=== PATIENT | female | born 1960 | race Hispanic/Latino ===

== ENCOUNTER 2022-09-09 10:34 | Inpatient (IN) | payer BC, OTHER ==
[~2022-09-09] VITALS: Ht 157.5 cm; Wt 88.5 kg
[2022-09-09] MEDS ORDERED: 0.9%NACL 1000ML 1,000 ML IV ONE (10:55)
[2022-09-09 10:59] LABS: BASOPHILS % (AUTO) 0.3 % (0.0-5.0); EOSINOPHILS % (AUTO) 0.6 % (0.0-8.0); HEMATOCRIT 46.4 % (36-48); LYMPHOCYTES % (AUTO) 13.6 % (21.0-51.0); MEAN CORPUSCULAR HEMOGLOBIN 28.8 pg (27.0-33.0); MEAN CORPUSCULAR HGB CONC 33.4 g/dL (32.0-36.0); MEAN CORPUSCULAR VOLUME 86.2 fL (79-99); MONOCYTES % (AUTO) 3.7 % (3.0-13.0); NEUTROPHILS % (AUTO) 81.5 % (40.0-77.0); PLATELET COUNT (AUTO) 297 K/uL (130-400); RED BLOOD CELL COUNT(AUTO) 5.38 MIL/uL (4.00-5.50); RED CELL DISTRIBUTION WIDTH 12.8 % (11.0-15.5); WHITE BLOOD COUNT (AUTO) 14.5 K/uL (4.8-10.8)
[2022-09-09] MEDS ORDERED: 0.9%NACL 1000ML 1,000 ML IV SCH (11:00)
[2022-09-09] MEDS ORDERED: ONDANSETRON 4MG INJ IV ONE (11:00)
[2022-09-09] MEDS ORDERED: HYDROMORPHONE 1 MG INJ IVP ONE ×2 (11:00→14:00)
[2022-09-09 11:17] LABS: CREATININE 0.9 mg/dL (0.5-1.5); POTASSIUM 4.2 mmol/L (3.5-5.1)
[2022-09-09 11:27] LABS: ALBUMIN 4.4 g/dL (3.5-5.0); TOTAL PROTEIN, SERUM 8.2 g/dL (6.0-8.3)
[2022-09-09] MEDS ORDERED: ZOSYN 3.375GM +NS 50ML IV SCH (12:30)
[2022-09-09 12:47] LABS: APPEARANCE,URINE CLOUDY (CLEAR); BILIRUBIN,URINE NEGATIVE (NEGATIVE); COLOR,URINE YELLOW (YELLOW); GLUCOSE, URINE (UA) NEGATIVE (NEGATIVE); KETONES,URINE 10 mg/dL (NEGATIVE); LEUKOCYTE ESTERASE ,URINE NEGATIVE Leu/uL (NEGATIVE); NITRATE,URINE NEGATIVE (NEGATIVE); OCCULT BLOOD,URINE NEGATIVE (NEGATIVE); PH,URINE 5.5 (5.0-8.0); PROTEIN,URINE 50 mg/dL (NEGATIVE); UROBILINOGEN,URINE 0.2 mg/dL (0.2-1.0)
[2022-09-09 12:52] LABS: MUCUS,URINE Moderate LPF (None Seen); SQUAMOUS EPITHELIAL CELL,UR RARE /HPF (0-2)
[2022-09-09] MEDS ORDERED: IOHEXOL 350 MG/ML 100ML INFUS..BTL IV ONE (13:24)
[2022-09-09] MEDS ORDERED: MORPHINE 2 MG SYG IVP PRN (16:00)
[2022-09-09 17:08] LABS: HEMOGLOBIN A1C 6.3 % (4.0-6.0)
[2022-09-09] MEDS ORDERED: METF-444 PO (17:10)
[2022-09-09] MEDS ORDERED: MONT-39 PO (17:11)
[2022-09-09] MEDS ORDERED: ATOR20TA65 PO (17:12)
[2022-09-09] MEDS ORDERED: LOSA1TAB54 PO (17:13)
[2022-09-09 17:22] LABS: CRP QUANTITATIVE 2.5 mg/L (0.00-9.0); THYROID STIMULATING HORMONE 2.51 uIU/mL (0.36-3.74)
[2022-09-09] MEDS: 0.9%NACL 1000ML 1,000 ML IV SCH (18:18)
[2022-09-09 18:30] VITALS: BP 106/61
[2022-09-09 20:00] VITALS: BP 110/51
[2022-09-09 20:01] LABS: INR 0.99 (0.85-1.15); PROTHROMBIN TIME 10.8 SEC (9.6-11.6)
[2022-09-09 20:02] LABS: PARTIAL THROMBOPLASTIN TIME 29.3 SEC (26.3-35.5)
[2022-09-09] MEDS: ZOSYN 3.375GM +NS 50ML IV SCH (20:19)
[2022-09-09] MEDS: HYDROMORPHONE 1 MG INJ IVP PRN (21:24)
[2022-09-10] VITALS: BP 107/50
[2022-09-10] MEDS: 0.9%NACL 1000ML 1,000 ML IV SCH ×3 (03:19→22:00)
[2022-09-10] MEDS: ZOSYN 3.375GM +NS 50ML IV SCH ×3 (03:19→21:02)
[2022-09-10] MEDS: HYDROMORPHONE 1 MG INJ IVP PRN (03:31)
[2022-09-10 04:00] VITALS: BP 96/55
[2022-09-10] MEDS ORDERED: ONDANSETRON 4MG INJ IVP PRN (04:30)
[2022-09-10 08:00] VITALS: BP_SYST 105; BP_SYST 121; BP_DIAS 55; BP_DIAS 82
[2022-09-10] MEDS: KETOROLAC 15MG/ML VIAL (15MG/ML) IM PRN ×2 (11:58→17:54)
[2022-09-10 12:00] VITALS: BP 121/82
[2022-09-10] MEDS ORDERED: POTASSIUM CHLORIDE 10% ELIXIR 20 MEQ/15 ML UDCUP PO PRN (12:00)
[2022-09-10] MEDS ORDERED: POTASSIUM CHLORIDE 20MEQ/100ML 100 ML IV PRN (12:00)
[2022-09-10] MEDS ORDERED: DIPHENHYDRAMINE HCL 25 MG CAPSULE PO PRN (12:00)
[2022-09-10] MEDS ORDERED: NITROGLYCERIN 0.4 MG SL TAB SL PRN (12:00)
[2022-09-10] MEDS ORDERED: LACTULOSE 20 GM/30 ML UDCUP PO PRN (12:00)
[2022-09-10] MEDS ORDERED: ONDANSETRON 4MG INJ IV PRN (12:00)
[2022-09-10] MEDS ORDERED: DiphenhydrAMINE HCL 50 MG/ML VIAL IV PRN (12:00)
[2022-09-10] MEDS ORDERED: MAGNESIUM 2GM PREMIX 50ML 50 ML IV PRN (12:00)
[2022-09-10] MEDS ORDERED: MAG/ALUM/SIMETH 30 ML UDCUP PO PRN (12:00)
[2022-09-10] MEDS ORDERED: ACETAMINOPHEN 325 MG TAB PO PRN ×2 (12:00)
[2022-09-10] MEDS ORDERED: LIDOCAINE HCL-MPF 1% 2ML VIAL IV PRN (12:00)
[2022-09-10] MEDS ORDERED: GUAIFENESIN-DM 200/20 MG 10 ML PO PRN (12:00)
[2022-09-10 16:00] VITALS: BP 121/74
[2022-09-10 20:00] VITALS: BP 132/63
[2022-09-10] MEDS: FAMOTIDINE 20MG TAB PO SCH (21:00)
[2022-09-10] MEDS: FAMOTIDINE 20MG VIAL IV SCH (21:02)
[2022-09-11] VITALS: BP 113/61
[2022-09-11 04:00] VITALS: BP 117/62
[2022-09-11] MEDS: ZOSYN 3.375GM +NS 50ML IV SCH ×3 (04:04→20:13)
[2022-09-11 05:48] LABS: BASOPHILS % (AUTO) 0.2 % (0.0-5.0); EOSINOPHILS % (AUTO) 1.6 % (0.0-8.0); HEMATOCRIT 33.1 % (36-48); MEAN CORPUSCULAR HEMOGLOBIN 28.6 pg (27.0-33.0); MEAN CORPUSCULAR HGB CONC 32.9 g/dL (32.0-36.0); MEAN CORPUSCULAR VOLUME 86.9 fL (79-99); MONOCYTES % (AUTO) 7.5 % (3.0-13.0); NEUTROPHILS % (AUTO) 71.2 % (40.0-77.0); PLATELET COUNT (AUTO) 229 K/uL (130-400); RED BLOOD CELL COUNT(AUTO) 3.81 MIL/uL (4.00-5.50); RED CELL DISTRIBUTION WIDTH 12.9 % (11.0-15.5); WHITE BLOOD COUNT (AUTO) 5.6 K/uL (4.8-10.8)
[2022-09-11 05:56] LABS: CREATININE 0.7 mg/dL (0.5-1.5); MAGNESIUM 1.9 mg/dL (1.80-2.40); PHOSPHORUS 2.5 mg/dL (2.5-4.9); POTASSIUM 3.4 mmol/L (3.5-5.1)
[2022-09-11] MEDS: KCL 20 MEQ ERTAB PO PRN ×2 (06:21→08:05)
[2022-09-11] MEDS: FAMOTIDINE 20MG TAB PO SCH ×2 (07:16→20:13)
[2022-09-11] MEDS: 0.9%NACL 1000ML 1,000 ML IV SCH ×2 (07:54→18:00)
[2022-09-11] MEDS: FAMOTIDINE 20MG VIAL IV SCH ×2 (08:03→20:13)
[2022-09-11] MEDS: ENOXAPARIN SODIUM 30 MG/0.3 ML SQ SCH (08:04)
[2022-09-11 08:30] VITALS: BP 126/65
[2022-09-11 11:00] VITALS: BP 113/65
[2022-09-11 16:00] VITALS: BP 115/59
[2022-09-11 20:00] VITALS: BP 121/78
[2022-09-12] VITALS (7 sets, daily range): BP systolic 103–141; BP diastolic 49–81
[2022-09-12] MEDS: 0.9%NACL 1000ML 1,000 ML IV SCH ×2 (04:00→11:50)
[2022-09-12] MEDS: ZOSYN 3.375GM +NS 50ML IV SCH ×3 (04:31→22:01)
[2022-09-12 06:59] LABS: BASOPHILS % (AUTO) 0.9 % (0.0-5.0); EOSINOPHILS % (AUTO) 3.9 % (0.0-8.0); HEMATOCRIT 33.9 % (36-48); LYMPHOCYTES % (AUTO) 24.7 % (21.0-51.0); MEAN CORPUSCULAR HEMOGLOBIN 28.5 pg (27.0-33.0); MEAN CORPUSCULAR HGB CONC 32.4 g/dL (32.0-36.0); MEAN CORPUSCULAR VOLUME 87.8 fL (79-99); MONOCYTES % (AUTO) 7.4 % (3.0-13.0); NEUTROPHILS % (AUTO) 62.9 % (40.0-77.0); PLATELET COUNT (AUTO) 242 K/uL (130-400); RED BLOOD CELL COUNT(AUTO) 3.86 MIL/uL (4.00-5.50); RED CELL DISTRIBUTION WIDTH 12.7 % (11.0-15.5); WHITE BLOOD COUNT (AUTO) 4.3 K/uL (4.8-10.8)
[2022-09-12 07:16] LABS: CREATININE 0.6 mg/dL (0.5-1.5); POTASSIUM 4.8 mmol/L (3.5-5.1)
[2022-09-12] MEDS: FAMOTIDINE 20MG TAB PO SCH ×2 (09:00→21:00)
[2022-09-12] MEDS: FAMOTIDINE 20MG VIAL IV SCH ×2 (09:35→22:01)
[2022-09-12] MEDS: ENOXAPARIN SODIUM 30 MG/0.3 ML SQ SCH (09:36)
[2022-09-13] MEDS: ZOSYN 3.375GM +NS 50ML IV SCH (03:53)
[2022-09-13 04:14] VITALS: BP 138/79
[2022-09-13 06:05] LABS: BASOPHILS % (AUTO) 0.6 % (0.0-5.0); EOSINOPHILS % (AUTO) 3.5 % (0.0-8.0); HEMATOCRIT 33.7 % (36-48); LYMPHOCYTES % (AUTO) 21.4 % (21.0-51.0); MEAN CORPUSCULAR HEMOGLOBIN 28.6 pg (27.0-33.0); MEAN CORPUSCULAR HGB CONC 33.2 g/dL (32.0-36.0); MEAN CORPUSCULAR VOLUME 86.2 fL (79-99); MONOCYTES % (AUTO) 6.3 % (3.0-13.0); NEUTROPHILS % (AUTO) 67.6 % (40.0-77.0); PLATELET COUNT (AUTO) 263 K/uL (130-400); RED BLOOD CELL COUNT(AUTO) 3.91 MIL/uL (4.00-5.50); RED CELL DISTRIBUTION WIDTH 12.6 % (11.0-15.5); WHITE BLOOD COUNT (AUTO) 5.4 K/uL (4.8-10.8)
[2022-09-13 08:00] VITALS: BP 120/54
[2022-09-13 08:10] LABS: CREATININE 0.6 mg/dL (0.5-1.5)
[2022-09-13] MEDS: FAMOTIDINE 20MG VIAL IV SCH (10:47)
[2022-09-13] MEDS: ENOXAPARIN SODIUM 30 MG/0.3 ML SQ SCH (10:49)
[2022-09-13] MEDS: 0.9%NACL 1000ML 1,000 ML IV SCH ×2 (10:58)
[2022-09-13 11:00] VITALS: BP 145/89
== END 2022-09-13 14:50 | disposition home or self-care (01) | DRG 760 ==
LOC: EDH 10:34 → EDHIP 16:12 → 3BH 18:52 → 3CH 09-10 09:38
PROVIDERS: ADMIT Internal Medicine; ATTEND Internal Medicine
DX: N94.89 Other specified conditions associated with female genital organs and menstrual cycle (principal); R18.8 Other ascites; E11.9 Type 2 diabetes mellitus without complications; I10 Essential (primary) hypertension; K59.00 Constipation, unspecified; N21.0 Calculus in bladder; N83.201 Unspecified ovarian cyst, right side; N83.202 Unspecified ovarian cyst, left side; Z79.84 Long term (current) use of oral hypoglycemic drugs; Z80.8 Family history of malignant neoplasm of other organs or systems; Z82.49 Family history of ischemic heart disease and other diseases of the circulatory system; Z79.899 Other long term (current) drug therapy
CPT/HCPCS: 36415; 71045; 74177; 76830; 76856; 80048; 80053; 81001; 81025; 82948; 83036; 83605; 83690; 83735; 84100; 84145; 84443; 84484; 84702; 85025; 85610; 85730; 86140; 86304; 87040; 93005; 96361; 96365; 96375; 96376; G0378; J1170; J1650; J1885; J2405; J2543; J3475; J3490; J7030; Q9967